=== PATIENT | female | born 1985 | race Two or more races ===

== ENCOUNTER 2017-08-30 10:23 | Emergency (ER) | payer OTHER ==
[~2017-08-30] VITALS: Ht 177.8 cm; Wt 68.9 kg
[2017-08-30] MEDS ORDERED: DEXTROAMP AMPHETAMIN (10:34)
[2017-08-30] MEDS ORDERED: IBUPROFEN 800 MG TABLET ONE (10:57)
[2017-08-30] MEDS ORDERED: IBUPROFEN 800 MG TABLET PO ONE (11:00)
[2017-08-30] MEDS ORDERED: SILVER SULFADIAZINE 1% CREAM 50 GM TP ONE (12:30)
[2017-08-30] MEDS ORDERED: SILVER SULFADIAZINE 1% CREAM 25 GM TUBE TP ONE (12:35)
--- NOTE | 2017-08-30 12:37 | NUR ---
Patient discharged to home in stable conditon. Written and verbal after care instructions given to patient. Patient verbalizes understanding of instructions.
== END 2017-08-30 12:39 | disposition home or self-care (01) ==
LOC: ER 10:25
DX: S16.1XXA Strain of muscle, fascia and tendon at neck level, initial encounter (principal); S46.092A Other injury of muscle(s) and tendon(s) of the rotator cuff of left shoulder, initial encounter; T22.211A Burn of second degree of right forearm, initial encounter; Z79.899 Other long term (current) drug therapy; V43.52XA Car driver injured in collision with other type car in traffic accident, initial encounter; Y93.89 Activity, other specified; Y92.410 Unspecified street and highway as the place of occurrence of the external cause; Y99.8 Other external cause status
CPT/HCPCS: 16020; 72125; 73030; 99284; A4663